=== PATIENT | male | born 1960 | race Caucasian/White ===

== ENCOUNTER 2018-03-09 07:33 | Day surgery (SDC) | payer OTHER ==
[2018-03-09] MEDS ORDERED: LIDOCAINE 1% 2 ML INJ ID PRN (08:40)
[2018-03-09] MEDS ORDERED: LR 1,000 ML IV ONE (08:40)
[2018-03-09] MEDS ORDERED: PROPOFOL/EMULSION 500 MG/50 ML BOTTLE IV ONE (08:59)
[2018-03-09] MEDS ORDERED: LIDOCAINE 2% 100 MG/5 ML SYR ONE (08:59)
--- NOTE | 2018-03-09 09:00 | PDANEPAE ---
ANE Past Medical History - Cardiovascular History Hx Hypertension: No Hx Arrhythmias: No Hx Chest Pain: No Hx Coronary Artery / Peripheral Vascular Disease: No Hx CHF / Valvular Disease: No Hx Palpitations: No - Pulmonary History Hx COPD: No Hx Asthma/Reactive Airway Disease: No Hx Recent Upper Respiratory Infection: No Hx Oxygen in Use at Home: No Hx Sleep Apnea: Yes Sleep Apnea Screening Result - Last Documented: Positive - Neurologic History Hx Cerebrovascular Accident: No Hx Seizures: No Hx Dementia: No - Endocrine History Hx Diabetes: No - Renal History Hx Renal Disorders: No Renal History Comment: BLADDER TUMOR CA - Liver History Hx Hepatic Disorders: No - Neurological & Psychiatric Hx Hx Neurological and Psychiatric Disorders: No - Cancer History Hx Cancer: Yes Cancer History Comment: BLADDER - Congenital Disorder History Hx Congenital Disorders: No - GI History Hx Gastrointestinal Disorders: Yes Gastrointestinal History Comment: GERD - Other Health History Other Health History: DVT 6 YRS AGO FOLLOWING PLANE TRIP TXD W/ANTI COAG THERAPY - NONE SINCE - Chronic Pain History Chronic Pain: Yes - Surgical History Prior Surgeries: BLADDER TUMOR. RETINAL DETACHMENT ANE Review of Systems Review of Systems: - Exercise capacity METS (RN): 5 METS ANE Patient History - Allergies Allergies/Adverse Reactions: ampicillin [Ampicillin] Allergy (Intermediate, Verified 04/23/12 18:25) Rash Penicillins Allergy (Intermediate, Verified 04/23/12 18:25) Rash - Home Medications Home Medications: Aspirin 02/20/18 [Last Taken Unknown] Nexium 02/20/18 [Last Taken Unknown] - NPO status NPO Since - Liquids (Date): 03/08/18 NPO Since - Solids (Date): 03/08/18 - Smoking Hx Smoking Status: Never smoked - Family Anes Hx Family Hx Anesthesia Complications: NEG ANE Labs/Vital Signs - Vital Signs Blood Pressure: 153/99 Heart Rate: 75 Respiratory Rate: 12 O2 Sat (%): 93 Height: 180.34 cm Weight: 88.451 kg ANE Physical Exam - Airway Neck exam: FROM Mallampati Score: Class 2 Mouth exam: normal dental/mouth exam - Cardiovascular Cardiovascular: regular rate and rhythym - ASA Status ASA Status: III ANE Anesthesia Plan Total IV Anesthesia: Yes
[2018-03-09] MEDS ORDERED: fentaNYL 100 MCG/2 ML INJ ONE (09:04)
--- NOTE | 2018-03-09 09:05 | PDGENHP ---
History and Physical History and Physical: 58yo male with ALICJA presents for surveilance colonoscopy in setting of prior hx of colon polyps and family hx of colon polyps. Plan colonoscopy with anesthesia.
[2018-03-09] MEDS ORDERED: ALBUTEROL 3 ML DEYVIAL IH PRN (09:32)
[2018-03-09] MEDS ORDERED: ONDANSETRON 4 MG/2 ML VIAL IVP PRN (09:32)
[2018-03-09] MEDS ORDERED: NALOXONE HCL 0.4 MG/ML INJ IVP PRN (09:32)
--- NOTE | 2018-03-09 09:32 | GIREPORT ---
[facility] Surgical Services - Endoscopy Department Patient Name: Gaurang Guerra Procedure Date: 03/09/2018 8:54 AM Patient Type: Outpatient Attending MD/ ER Physician: Chad Jerry MD Procedure: Colonoscopy Indications: High risk colon cancer surveillance: Personal history of colonic polyps Providers: Chad Jerry MD Medicines: Sedation Administered by an Anesthesia Professional Complications: No immediate complications. Description of Procedure: After obtaining informed consent, the scope was passed under direct vis ion. Throughout the procedure, the patient's blood pressure, pulse, and oxyg en saturations were monitored continuously. The Colonoscope with irrigatio n channel was introduced through the anus and advanced to the cecum, identified by appendiceal orifice and ileocecal valve. The colonoscopy was performed without difficulty. The patient tolerated the procedure well. The quality of the bowel preparation was excellent. The ileocecal valve, appendiceal orifice, and rectum were photographed. Findings: A 5 mm polyp was found in the cecum. The polyp was sessile. The polyp w as removed with a cold biopsy forceps. Resection and retrieval were comple te. A 5 mm polyp was found in the sigmoid colon. The polyp was sessile. The polyp was removed with a cold biopsy forceps. Resection and retrieval w ere complete. Estimated Blood Loss: Estimated blood loss: none. Post Op Diagnosis: - One 5 mm polyp in the cecum, removed with a cold biopsy forceps. Rese cted and retrieved. - One 5 mm polyp in the sigmoid colon, removed with a cold biopsy force ps. Resected and retrieved. Recommendation: - Written discharge instructions were provided to the patient. - The signs and symptoms of potential delayed complications were discus sed with the patient. - Patient has a contact number available for emergencies. - Return to normal activities tomorrow. - Resume previous diet. - Continue present medications. - Await pathology results. - Repeat colonoscopy in 5 years for surveillance. Attending Participation: I personally performed the entire procedure. Chad Jerry MD Chad Jerry MD 03/09/2018 9:32:19 AM This report has been signed electronicallyChad Jerry MD Number of Addenda: 0 Note Initiated On: 03/09/2018 8:54 AM Total Procedure Duration Time 0 hours 15 minutes 10 seconds [email or web address]
--- NOTE | 2018-03-09 09:32 | POSTANESTH ---
Post Anesthetic Evaluation Cardiovascular Status: Similar to Pre-Op Cond Respiratory Status: Similar to Pre-op Cond. Level of Consciousness/Mental Status: Mildly Sleepy, Arousable Pain Control: Adequate, Prn Tx Ordered Nausea/Vomiting Control: Adequate, Prn Tx Ordered Complications Possibly Related to Anesthesia: None Noted
[2018-03-09 10:33] VITALS: BP 121/91
== END 2018-03-09 10:37 | disposition home or self-care (01) ==
LOC: FSGY 07:33
PROVIDERS: ATTEND Internal Medicine Gastroenterology
DX: Z12.11 Encounter for screening for malignant neoplasm of colon (principal); D12.0 Benign neoplasm of cecum; K63.5 Polyp of colon; G47.33 Obstructive sleep apnea (adult) (pediatric); Z86.010 Personal history of colon polyps; Z83.71 Family history of colonic polyps; Z88.0 Allergy status to penicillin
CPT/HCPCS: J2001; J2704; J3010